=== PATIENT | female | born 1985 ===

== ENCOUNTER 2020-07-28 15:22 | Observation (INO) | payer MEDICAID ==
[~2020-07-28] VITALS: Ht 170.2 cm; Wt 70.3 kg
[2020-07-28] MEDS ORDERED: LACTATED RINGER'S 1,000 ML IV ONE (16:00)
[2020-07-28] MEDS ORDERED: BETAMETHASONE ACET (6MG/ML) 5ML VIAL IM ONE (16:00)
[2020-07-28 16:20] LABS: Alcohol, Urine < 3.0 mg/dL (0-10); Amphetamine Screen, Urine NEGATIVE (NEGATIVE); Barbiturate Scree,Urine NEGATIVE (NEGATIVE); Benzodiazephine Screen, Urine NEGATIVE (NEGATIVE); Cannabinoid Screen, Urine NEGATIVE (NEGATIVE); Cocaine Screen, Urine NEGATIVE (NEGATIVE); Opiate Scree,Urine NEGATIVE (NEGATIVE); Phencyclidine Screen, Urine NEGATIVE (NEGATIVE)
[2020-07-28 16:22] LABS: Basophils # (auto) 0 10 ^3/uL (0-0.2); Hemoglobin 8.5 g/dL (12.2-16.2); Monocytes # (auto) 0.9 10 ^3/uL (0-1.3); Nucleated Red Blood Cells % 0.1 %; Red Cell Distribution Width 15.7 % (11.8-14.3); White Blood Cell 11.4 10^3/uL (4.4-10.8)
[2020-07-28 16:24] LABS: Basophils % (auto) 0.1 % (0.0-2.0); Eosinophils # (auto) 0.1 10 ^3/uL (0-0.8); Eosinophils % (auto) 0.6 % (0.0-7.0); Hematocrit 26.4 % (36.0-46.0); Lymphocytes % (auto) 17.8 % (10.0-50.0); Mean Corpuscular Hemoglobin 26.7 pg (28.0-32.0); Mean Corpuscular Hgb Conc. 32.3 g/dL (32.0-36.0); Mean Corpuscular Volume 82.6 fL (80.0-100.0); Monocytes % (auto) 8.1 % (0.0-12.0); Neutrophils # (auto) 8.4 10 ^3/uL (1.6-8.6); Neutrophils % (auto) 73.4 % (37.0-80.0); Platelet Count (auto) 327 10^3/uL (140-450); Red Blood Cells 3.19 10^6/uL (4.0-5.20)
[2020-07-28] MEDS ORDERED: AMPICILLIN IV ONE (16:30)
[2020-07-28] MEDS ORDERED: SODIUM CHL 0.9% IV ONE (16:30)
[2020-07-28 16:32] LABS: Urine Bacteria NONE SEEN /hpf (None Seen); Urine Blood Negative /uL (Negative); Urine Specific Gravity 1.008 (1.001-1.035); Urine WBC <1 /hpf (0 - 5)
[2020-07-28 16:43] LABS: Potassium 3.6 mmol/L (3.5-5.1)
[2020-07-28 16:44] LABS: Albumin 2.3 g/dL (3.4-5.0); Calcium 8.6 mg/dL (8.5-10.1)
[2020-07-28 16:47] LABS: BUN/Creatinine Ratio 10.3; Bilirubin, Total 0.4 mg/dL (0.2-1.0); Total Protein 6.3 g/dL (6.4-8.2); Uric Acid 2.4 mg/dL (2.6-6.0)
[2020-07-28 16:55] LABS: INR 0.92 (0.9-1.15); Partial Thromboplastin Time 22.5 sec (23.0-31.2)
[2020-07-29 05:11] LABS: RPR Non Reactive (Non Reactive)
== END 2020-07-28 20:12 | disposition short-term general hospital (02) ==
LOC: LDRP 15:22
PROVIDERS: ADMIT Obstetrics & Gynecology; ATTEND Obstetrics & Gynecology
DX: O42.913 Preterm premature rupture of membranes, unspecified as to length of time between rupture and onset of labor, third trimester (principal); Z20.828 Contact with and (suspected) exposure to other viral communicable diseases; Z79.899 Other long term (current) drug therapy; Z3A.35 35 weeks gestation of pregnancy
CPT/HCPCS: 36415; 59025; 76805; 80053; 80307; 81001; 84112; 84550; 85025; 85610; 85730; 86592; 86850; 86900; 86901; 87426; 96361; 96365; 96372; G0378; J0290; J0702; Q0114; 96360; 96366